=== PATIENT | female | born 1970 | race Caucasian/White ===

== ENCOUNTER 2020-12-12 20:35 | Emergency (ER) | payer MEDICAID ==
[~2020-12-12] VITALS: Ht 162.6 cm; Wt 77.3 kg
[~2020-12-12 20:35] MED LIST: ONDA8TAB9 PO
[2020-12-12 21:20] LABS: CLARITY,URINE CLEAR (Clear); COLOR,URINE YELLOW (Yellow); GLUCOSE, URINE NEGATIVE (Neg); KETONES,URINE NEGATIVE (Neg); LEUKOCYTE ESTERASE ,URINE NEGATIVE (Neg); NITRITES, URINE NEGATIVE (Neg); OCCULT BLOOD,URINE NEGATIVE (Neg); PH,URINE >=9.0 (4.8-8.0); PROTEIN,URINE NEGATIVE (Neg); UROBILINOGEN,URINE 0.2 E.U/dL (0.2-1.0)
[2020-12-12 21:21] LABS: URINE HCG NEGATIVE (NEG)
[2020-12-12 21:25] LABS: UA COLLECTION TYPE CLN CATCH MIDSTREAM
[2020-12-12 21:26] LABS: BASOPHILS % (AUTO) 0.6 % (0-1); EOSINOPHILS # (AUTO) 0.1 X10'3 (0-0.9); HEMATOCRIT 44.1 % (35.0-45.0); HEMOGLOBIN 14.8 g/dl (12.0-16.0); LYMPHOCYTES # (AUTO) 2.4 X10'3 (1.1-4.8); LYMPHOCYTES % (AUTO) 29.9 % (21-51); MEAN CORPUSCULAR HEMOGLOBIN 27.2 PG (27.0-31.0); MEAN CORPUSCULAR HGB CONC 33.5 g/dL (33.0-36.5); MEAN CORPUSCULAR VOLUME 81.4 FL (78-98); MEAN PLATELET VOLUME 7.5 FL (7.4-10.4); MONOCYTES # (AUTO) 0.8 X10'3 (0-0.9); MONOCYTES % (AUTO) 9.6 % (2-12); NEUTROPHILS # (AUTO) 4.8 X10'3 (1.8-7.7); NEUTROPHILS % (AUTO) 58.9 % (42-75); PLATELET COUNT 356 X10'3 (140-440); RED BLOOD COUNT 5.42 X10'6 (4.20-5.60); RED CELL DISTRIBUTION WIDTH 13.9 % (11.5-14.5); WHITE BLOOD COUNT 8.2 X10'3 (4.5-11.0)
[2020-12-12 21:30] LABS: ALANINE AMINOTRANSFERASE 30 U/L (12-78); ALBUMIN 3.7 G/DL (3.4-5.0); ALBUMIN/GLOBULIN RATIO 0.9 (1.1-1.5); ALKALINE PHOSPHATASE 158 IU/L (46-116); ANION GAP 9 (8-16); ASPARTATE AMINO TRANSFERASE 20 U/L (10-37); BILIRUBIN,TOTAL 0.4 MG/DL (0.1-1.0); BLOOD UREA NITROGEN 5 MG/DL (7-18); BUN/CREATININE RATIO 7.1 (6.6-38.0); CHLORIDE 103 MMOL/L (99-107); GLUCOSE 117 MG/DL (70-104); LIPASE 97 U/L (73-393); POTASSIUM 3.7 MMOL/L (3.5-5.1); SODIUM 141 MMOL/L (135-145); TOTAL PROTEIN 7.9 G/DL (6.4-8.2); eGFR 88 ML/MIN
[2020-12-12 21:37] LABS: CALCIUM 8.7 MG/DL (8.5-10.1)
[2020-12-12] MEDS ORDERED: pantoprazole 40 MG vial IV ONE (22:20)
[2020-12-12] MEDS ORDERED: morphine 4 MG/ML inj SYRINge IV ONE (22:20)
[2020-12-12] MEDS ORDERED: ondansetron/PF 4mg/2ml inj IV ONE (22:20)
[2020-12-12] MEDS ORDERED: iohexol 300mg/ml 100ml inj. ONE (22:21)
--- NOTE | 2020-12-12 23:02 | NUR ---
pt returns from CT. assumed care of pt, pt denies needs.
[2020-12-12] MEDS ORDERED: ONDA4TAB6 PO (23:36)
[2020-12-12] MEDS ORDERED: ketorolac tromethamine 15mg/ml inj. IV ONE (23:50)
--- NOTE | 2020-12-12 23:54 | NUR ---
per ERP, please medicate pt and wait 1 hour before d/c. then okay to leave.
--- NOTE | 2020-12-13 01:27 | NUR ---
per ERP, d/c at 0300. pt resting in bed
[2020-12-13 03:00] VITALS: BP 105/76
== END 2020-12-13 03:00 | disposition home or self-care (01) ==
LOC: ER 20:36
DX: R10.84 Generalized abdominal pain (principal); R11.0 Nausea; G43.909 Migraine, unspecified, not intractable, without status migrainosus; E78.00 Pure hypercholesterolemia, unspecified; J45.909 Unspecified asthma, uncomplicated; E11.9 Type 2 diabetes mellitus without complications; F32.9 Major depressive disorder, single episode, unspecified; Z87.440 Personal history of urinary (tract) infections; Z90.49 Acquired absence of other specified parts of digestive tract; Z98.890 Other specified postprocedural states; Z79.899 Other long term (current) drug therapy
CPT/HCPCS: 36415; 74177; 80053; 81003; 81025; 83690; 85025; 96374; 96375; 99285; C9113; J1885; J2270; J2405; Q9967

== ENCOUNTER 2024-02-16 09:47 | Outpatient (CLI) | payer MEDICAID ==
[~2024-02-16 09:47] MED LIST changes: +ONDA4TAB6 PO
== END 2024-02-16 23:59 | disposition home or self-care (01) ==
LOC: CARD DIAG 09:47
PROVIDERS: ATTEND Nurse Practitioner Family
DX: I08.3 Combined rheumatic disorders of mitral, aortic and tricuspid valves (principal); R00.1 Bradycardia, unspecified
CPT/HCPCS: 93306

== ENCOUNTER 2025-07-16 14:08 | Emergency (ER) | payer MEDICAID ==
[~2025-07-16] VITALS: Ht 160 cm; Wt 82.7 kg
[2025-07-16 14:13] VITALS: BP 132/81; PULSE 84; RESP 15; O2SAT 97
--- NOTE | 2025-07-16 14:22 | Physician Documentation ---
History of Present Illness Stated Complaint: POSS ALLERGIC REACTION Primary Medical Doctor: Ravinder laughlin [facility] Very pleasant 54-year-old female that presents to the emergency department for evaluation of allergic reaction secondary to amoxicillin she believes. Patient was placed on amoxicillin to treat her bronchitis. Patient reports over the last 3 days she has had urticaria with pruritus this seems to be progressing. Patient reports she stopped taking the antibiotic 2 days ago but has had continued progression of the rash since that time. No current airway involvement although she reports her tongue felt numb and tingling yesterday that has resolved today she does not have any intraoral concern or airway involvement at this time. Medication Reconciliation Allergies: Coded Allergies: No Known Allergies (Unverified , 01/30/10) Scheduled Ondansetron Hcl (Zofran), 1 TAB PO Q6H Scheduled PRN Ondansetron (Zofran Odt), 8 MG PO TID PRN PRN for nausea/vomiting Past Medical History Past Medical History: Migraine, High Cholesterol, Asthma, UTI, Diabetes, Fibromyalgia, Depression Past Surgical History: cholecystectomy, orthopedic surgeries Alcohol Use: None Drug Use: none Lives In: Home Occupation: employed Review of Systems ROS As stated above in the HPI, otherwise all systems are reviewed and negative. Physical Exam Physical Exam VITALS: Reviewed and as above. GENERAL: Alert, no apparent distress. HEENT: Normocephalic, atraumatic, PERRL, EOMI, dry mucosa, no erythema RESPIRATORY: Lungs clear, normal breath sounds, no respiratory distress. CHEST: No accessory muscle use, no retractions CV: Regular rate, rhythm, no edema, no murmur, No: JVD GI: Soft, non-tender, bowels sounds present, no rebound, guarding, or rigidity BACK: No CVA tenderness, or swelling MUSCULOSKELETAL No deformities, no edema SKIN: Warm and dry, diffuse papular rash across trunk forehead and chest, patient reports that the rash is pruritic, there is no sloughing of the skin noted no significant areas of erythema noted. NEURO: Oriented x4, No motor or sensory deficit PSYCH: Normal mood and affect, no agitation Medical Decision Making Additional information obtaine: other Findings Chief Complaint: Allergic reaction History of Present Illness: 54-year-old female presented to the emergency department with a pruritic, diffuse rash that developed over several days following amoxicillin treatment for bronchitis. The rash paradoxically worsened after discontinuing amoxicillin two days prior to presentation. Patient denies intraocular, intraoral, or genital mucosal involvement. No angioedema, dysphagia, respiratory distress, or systemic symptoms including fever, chills, nausea, vomiting, or diarrhea. Airway remained patent throughout evaluation. Emergency Department Course: Patient received methylprednisolone 125 mg IV, diphenhydramine 25 mg IV, and famotidine 10 mg IV with significant clinical improvement in pruritus and rash appearance. Medical Decision-Making: Number of Diagnoses/Management Options: Moderate complexity. Differential diagnosis included drug hypersensitivity reaction (most likely), urticaria, viral exanthem, and serum sickness-like reaction. Clinical presentation most consistent with delayed-type hypersensitivity reaction to amoxicillin given temporal relationship and characteristic diffuse pruritic rash without mucosal or systemic involvement. Amount/Complexity of Data: Limited. Clinical diagnosis based on history and physical examination. No laboratory studies or imaging required given absence of systemic symptoms and clear temporal relationship to medication exposure. Risk of Complications: Moderate. While patient presented with uncomplicated cutaneous reaction without airway compromise or anaphylaxis, there remained risk of progression to more severe hypersensitivity reaction. However, patient demonstrated significant improvement with standard antihistamine and corticosteroid therapy, and vital signs remained stable throughout ED course. No evidence of Andujar-Kishore syndrome, toxic epidermal necrolysis, or DRESS syndrome. Assessment and Plan: Drug hypersensitivity reaction secondary to amoxicillin - Patient treated with corticosteroid, H1-willie, and H2-willie with good response. Will discharge with prednisone taper, antihistamine therapy, and strict avoidance of penicillin-class antibiotics. Patient counseled to document penicillin allergy in medical records. Bronchitis in setting of COPD - Amoxicillin discontinued due to allergic supa ction. Will prescribe azithromycin as alternative antibiotic therapy per COPD exacerbation treatment protocol. Patient instructed to complete full course of azithromycin. Disposition: Discharge home with close outpatient follow-up. Patient demonstrates clinical improvement, stable vital signs, patent airway, and no signs of systemic involvement or progression to severe hypersensitivity reaction. Return precautions provided for worsening rash, development of mucosal involvement, difficulty breathing, facial swelling, or any concerning symptoms. Overall Level of Medical Decision-Making: Moderate complexity based on moderate number of diagnoses and management options, limited data complexity, and moderate risk of complications. Differential Dx:Considerations: Other Departure Disposition: 01 HOME / SELF CARE / HOMELESS Impression: Primary Impression: Acute allergic reaction Condition: Stable Referrals: NO PRIMARY CARE PROVIDER (PCP) Prescriptions Azithromycin (Azithromycin) 250 Mg Tablet 1 TAB PO UD for 5 Days, #6 TAB 2 the first day followed by 1 for days 2-5 Prov: JOCELYN BAH 07/16/25 Education Educated: Patient Educated regarding: diagnosis, treatment, need for follow up Signature Scribe Signature: A Attestation: Scribed for Jocelyn Bah by CODI Montes De Oca . 07/16/25 16:52 JOCELYN BAH Jul 16, 2025 14:21
[2025-07-16] MEDS: diphenhydrAMINE 25 MG/10 ML UD oral solution PO ONE (15:33)
[2025-07-16 15:47] LABS: MEAN PLATELET VOLUME 7.4 FL (7.4-10.4); RED CELL DISTRIBUTION WIDTH 14.6 % (11.5-14.5)
[2025-07-16 16:05] LABS: CREATININE 0.87 MG/DL (0.40-0.90); TOTAL CARBON DIOXIDE 25.5 MMOL/L (24-32); eCRCL 60 ML/MIN; eGFR 67 ML/MIN
[2025-07-16 16:24] LABS: LEUKOCYTE ESTERASE ,URINE NEGATIVE (Neg); NITRITES, URINE NEGATIVE (Neg); OCCULT BLOOD,URINE NEGATIVE (Neg)
[2025-07-16 16:30] LABS: UA COLLECTION TYPE NON-SPECIFIED
[2025-07-16 16:31] LABS: SQUAMOUS EPITHELIAL CELL,UR MODERATE /LPF (FEW); YEAST MANY /HPF (NEGATIVE)
[2025-07-16] MEDS ORDERED: AZIT250T83 PO (16:52)
== END 2025-07-16 17:00 | disposition home or self-care (01) ==
LOC: ER 14:09
DX: T78.40XA Allergy, unspecified, initial encounter (principal); E11.9 Type 2 diabetes mellitus without complications; E78.00 Pure hypercholesterolemia, unspecified; J44.89 Other specified chronic obstructive pulmonary disease; M79.7 Fibromyalgia; Z90.49 Acquired absence of other specified parts of digestive tract; X58.XXXA Exposure to other specified factors, initial encounter
CPT/HCPCS: 36415; 80053; 81001; 85025; 96374; 99283; J2919; Q0163